=== PATIENT | male | born 1995 | race Caucasian/White ===

== ENCOUNTER 2017-07-20 21:29 | Emergency (ER) | payer BC ==
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
== END 2017-07-20 22:55 | disposition home or self-care (01) ==
LOC: MW.ED 21:29
DX: S05.11XA Contusion of eyeball and orbital tissues, right eye, initial encounter (principal); H57.12 Ocular pain, left eye; Y04.0XXA Assault by unarmed brawl or fight, initial encounter; Z79.899 Other long term (current) drug therapy
CPT/HCPCS: 99282; 99283